=== PATIENT | female | born 1980 | race Asian ===

== ENCOUNTER 2021-05-11 07:11 | Day surgery (SDC) | payer OTHER ==
[~2021-05-11] VITALS: Ht 154.9 cm; Wt 71.8 kg
[~2021-05-11 07:11] MED LIST: AMLO10 PO; CEPH500 PO; LEVFLO500 PO; LOSA50 PO; OMEP20ER PO; ONDA4 PO; PHENA200 PO; RXHYDACE PO; SPIR25 PO; TRAM50 PO; URSO300 PO; [UNRECOGNIZED DRUG - OTHER] PO
--- NOTE | 2021-05-11 08:08 | NUR ---
Ambulatory in Day Surgery. Surgical site prepped with 2% Chlorhexidine cloth wipe. History, Chart, Medications and Allergies reviewed before start of procedure. Patient confirms NPO status and agrees with scheduled surgery. Patient States Post-Procedure ride home has been arranged. Patient reports completing Chlorhexadine shower X2 prior to admission to hospital. Pre-Op teaching done. Pt verbalizes understanding.
--- NOTE | 2021-05-11 10:58 | NUR ---
Ambulatory in Day Surgery Discharge instructions reviewed with patient. Patient verbalizes understanding. Copy given to patient to take home. Discharged via wheelchair to private car for ride home.
== END 2021-05-11 11:00 | disposition home or self-care (01) ==
LOC: ORSCMMR 07:11 → ORD 08:30 → ORSCMMR 08:30
PROVIDERS: Surgery
PROC: 0FT44ZZ Resection of Gallbladder, Percutaneous Endoscopic Approach (ICD-10-PCS; principal; 2021-05-11 08:30)
PROC: BF121ZZ Fluoroscopy of Gallbladder using Low Osmolar Contrast (ICD-10-PCS; principal; 2021-05-11 08:30)
DX: K80.10 Calculus of gallbladder with chronic cholecystitis without obstruction (principal); I10 Essential (primary) hypertension; Z79.899 Other long term (current) drug therapy
CPT/HCPCS: 74300; 88304; A9270; C1729; J0690; J1100; J1885; J2370; J2405; J2704; J2710; J3010; J7120